=== PATIENT | female | born 1985 | race Caucasian/White ===

== ENCOUNTER 2019-05-14 19:18 | Emergency (ER) | payer OTHER ==
[~2019-05-14] VITALS: Ht 165.1 cm; Wt 120.2 kg
[2019-05-14 19:45] VITALS: Ht 165.1 cm; Wt 120.2 kg
[2019-05-15 00:14] VITALS: BP 111/71
== END 2019-05-15 00:14 | disposition home or self-care (01) ==
LOC: ED 19:18
DX: F10.129 Alcohol abuse with intoxication, unspecified (principal); Y90.9 Presence of alcohol in blood, level not specified